=== PATIENT | male | born 1960 | race Caucasian/White ===

== ENCOUNTER → 2022-12-15 | Outpatient (CLI) | payer OTHER ==
[~2022-12-15] MED LIST: IOHEXOL 350 MG/ML 100ML INFUS..BTL IV ONE
== END | disposition home or self-care (01) ==
LOC: RAH 10:22
PROVIDERS: ATTEND Internal Medicine Cardiovascular Disease
DX: R07.9 Chest pain, unspecified (principal)
CPT/HCPCS: 75574; Q9967

== ENCOUNTER 2023-02-03 07:03 | Day surgery (SDC) | payer OTHER ==
[2023-02-01 17:39] LABS: BASOPHILS % (AUTO) 0.7 % (0.0-5.0); EOSINOPHILS % (AUTO) 1.3 % (0.0-8.0); HEMATOCRIT 43.9 % (42-54); MEAN CORPUSCULAR VOLUME 90.7 fL (79-99); MONOCYTES % (AUTO) 6.7 % (3.0-13.0); NEUTROPHILS % (AUTO) 53.2 % (40.0-77.0); PLATELET COUNT (AUTO) 202 K/uL (130-400); RED BLOOD CELL COUNT(AUTO) 4.84 MIL/uL (4.50-6.20); RED CELL DISTRIBUTION WIDTH 12.1 % (11.0-15.5); WHITE BLOOD COUNT (AUTO) 6.9 K/uL (4.8-10.8)
[2023-02-01 17:50] LABS: INR 0.93 (0.85-1.15); PROTHROMBIN TIME 9.6 SEC (9.6-11.6)
[2023-02-01 17:52] LABS: PARTIAL THROMBOPLASTIN TIME 27.7 SEC (26.3-35.5)
[2023-02-01 17:55] LABS: CREATININE 0.8 mg/dL (0.5-1.5); POTASSIUM 4.5 mmol/L (3.5-5.1)
[2023-02-01 17:58] LABS: APPEARANCE,URINE CLEAR (CLEAR); BILIRUBIN,URINE NEGATIVE (NEGATIVE); COLOR,URINE COLORLESS (YELLOW); GLUCOSE, URINE (UA) >=1000 mg/dL (NEGATIVE); KETONES,URINE 5 mg/dL (NEGATIVE); LEUKOCYTE ESTERASE ,URINE NEGATIVE Leu/uL (NEGATIVE); NITRATE,URINE NEGATIVE (NEGATIVE); OCCULT BLOOD,URINE NEGATIVE (NEGATIVE); PH,URINE 5.5 (5.0-8.0); PROTEIN,URINE NEGATIVE (NEGATIVE); UROBILINOGEN,URINE 0.2 mg/dL (0.2-1.0)
[2023-02-01 17:59] LABS: RBC,URINE 0-1 /HPF (0-1); WBC,URINE 0-1 /HPF (0-1)
[2023-02-02 00:19] LABS: B-TYPE NATRIURETIC PEPTIDE 6 pg/mL (0-100)
[2023-02-03] VITALS (9 sets, daily range): BP systolic 99–146; BP diastolic 54–74
[~2023-02-03 07:03] MED LIST changes: +0.9% NACL 500ML IV.SOLN 500 ML IV SCH; +ASPI-449 PO; +EMPA25TA PO; -IOHEXOL 350 MG/ML 100ML INFUS..BTL IV ONE; +LISI5TAB21 PO; +METF-446 PO; +ROSU10TA28 PO; +SEMA1PEN3 SQ; +[UNRECOGNIZED DRUG - OTHER] PO; +fish oil PO; +glucosamine PO
[2023-02-03] MEDS ORDERED: 0.9%NACL 1000ML 1,000 ML IV ONE (07:15)
[2023-02-03] MEDS ORDERED: SODIUM BICARB 50MEQ 50ML VIAL 50 ML ONE (10:26)
[2023-02-03] MEDS ORDERED: LIDOCAINE HCL 400MG/20ML VIAL ONE (10:27)
[2023-02-03] MEDS ORDERED: MEPERIDINE-PF 25 MG/ML SYG ONE ×3 (10:27→10:50)
[2023-02-03] MEDS ORDERED: IOHEXOL 350 MG/ML 100ML INFUS..BTL IV ONE (10:27)
[2023-02-03] MEDS ORDERED: MIDAZOLAM HCL 1 MG/ML 2ML VIAL ONE ×3 (10:27→10:50)
[2023-02-03] MEDS ORDERED: HEPARIN 10,000 UNIT/10ML (1,000 UNIT/ML) VIAL ONE (10:27)
[2023-02-03] MEDS ORDERED: IOHEXOL-350 50ML VIAL IV ONE (10:27)
[2023-02-03] MEDS ORDERED: NICARDIPINE 25MG INJ IV ONE (10:27)
[2023-02-03] MEDS ORDERED: INSULIN HUMULIN R 100 UNIT/ML 3ML SQ SCH (11:30)
[2023-02-03] MEDS ORDERED: 0.9%NACL 1000ML 1,000 ML IV SCH (11:30)
[2023-02-03] MEDS ORDERED: GLUCAGON 1MG KIT 1 MG ML IM PRN (11:30)
[2023-02-03] MEDS ORDERED: DEXTROSE 50%-WATER 50 ML DISP.SYRIN IV PRN (11:30)
== END 2023-02-03 15:10 | disposition home or self-care (01) ==
LOC: DAH 07:03
PROVIDERS: ATTEND Internal Medicine Cardiovascular Disease
DX: R94.39 Abnormal result of other cardiovascular function study (principal); I10 Essential (primary) hypertension; E11.9 Type 2 diabetes mellitus without complications; E78.5 Hyperlipidemia, unspecified; Z82.49 Family history of ischemic heart disease and other diseases of the circulatory system; Z83.3 Family history of diabetes mellitus; Z98.890 Other specified postprocedural states; Z79.01 Long term (current) use of anticoagulants; Z79.899 Other long term (current) drug therapy; Z79.84 Long term (current) use of oral hypoglycemic drugs; Z79.82 Long term (current) use of aspirin
CPT/HCPCS: 80048; 83880; 85025; 85610; 85730; 81001; 36415; 71045; 93005; 93458; 82948 ×2; C1769; C1894; Q9965; J3490 ×3; J7030; J1644 ×2; J2250 ×3; J2175 ×3; Q9967; A4215; A4222; A4221; A4663; A4216; A4606; A4223 ×3; 99156; 99157